=== PATIENT | male | born 1965 | race Caucasian/White ===

== ENCOUNTER 2024-04-13 13:05 | Outpatient (AMB) | payer BC, SELFPAY ==
[2024-04-13 13:29] VITALS: PULSE 88; O2SAT 96; BMI 32.7
--- NOTE | 2024-04-13 13:29 | A.OFFVIS_ITS ---
Vital Signs 04/13/24 13:29 Height 5 ft 10 in Weight 228 lb 2.855 oz BMI 32.7 Pulse 88 Pulse Source Pulse Oximeter Pulse Oximetry (%) 96 Oxygen Delivery Method Room Air Intake Visit Reasons: Cough Property Insurance Claims Examiner Required: No Allergies No Known Allergies Allergy (Verified 04/13/24 13:30) HPI Comments Details: The patient is here for pulmonary evaluation. The patient is a 58-year-old gentleman previously healthy complaining of a worsening cough. The patient states that he was in his usual state health until 11/09/2023 when he started developing a URI like symptoms with cough. The cough persisted them. Was pretty productive in nature with green sputum. Moderate severity. He was given a rescue inhaler at some point although he really did not use it. He did have a chest x-ray which was without any acute disease. Then he had a CT scan of the chest. I personally reviewed the CT scan. Does not have any parenchymal disease except some atelectasis bases. The patient does have some dilation of the bronchi in the lower lung zones left more than right suggesting some degree of chronic bronchitis with some signet ring sign. On examination the patient has had some expiratory wheezing as well. He does have a rescue inhaler that he does not like to use it. He has currently is . I will make sure that he has 1 available. His 's concern that he has a smoldering infections since he has had since he was sick in October. Not unreasonable just to treat him with doxycycline to make sure. Although I suspect that he has more of an allergic bronchitis or asthmatic bronchitis picture. Therefore, will request additional blood work including allergy testing in immune workup. In addition to that sputum culture be helpful specially if he has not responding to the doxycycline. The patient also has a pulmonary nodule on a CT scan of the chest. Small subcentimeter in size but with his underlying respiratory symptoms I would encourage him to consider repeating the CT scan a year from the last 1. Will follow-up in 3 months and discuss this further. Further recommendation based forthcoming data. [facility] Medical History (Updated 04/16/24 @ 23:10 by Ismael Alvarado MD) Pulmonary nodule Chronic cough Bronchitis Social History (Updated 04/13/24 @ 13:33 by WILLIAMS Daily) Patient Tobacco Use Status: Never used Tobacco Review of Systems Const Denies fever(s) Eyes Reports no additional complaints ENT Reports nasal congestion Card Denies chest pain Resp Reports chest congestion, Reports cough and Reports wheezing GI Reports no additional complaints Musc Reports no additional complaints Skin/Breast Denies rash Neuro Reports no additional complaints Maciel/Lymph Denies easy bleeding Aller/Immun Reports wheezing Physical Exam Vital Signs: Last Vital Signs Pulse 88 04/13/24 13:29 Pulse Ox 96 04/13/24 13:29 Oxygen Delivery Method Room Air 04/13/24 13:29 BMI result Body Mass Index 32.7 Const General: healthy appearing HEENT Head: Yes normocephalic Neck Neck: Yes supple Chest Chest palpation & inspection: normal inspection of the chest Resp Effort & Inspection: normal respiratory effort and prolonged expiratory phase Cardio Heart sounds: S1 normal heart sound present and S2 normal heart sound present GI Palpation (GI): Soft to palpation Skin General skin exam: no rashes or lesions noted Extrem General: Yes no clubbing, cyanosis or edema Results Reviewed Results Reviewed: RUN: 04/16/24 7121 PAGE 1 [facility] [address] [place] [phone] [employer]: Nabeel Barlow M.D. Specimen Inquiry Name: Juan CarlosamericaNabeel Leyla Age/Sex: 58/M : 1965 Unit#: [id number] Attend Dr: Ismael Alvarado MD Re04/13/24 Status: DEP [facility]F [facility] Disch: SPEC : [id number] ALTON: 04/13/24 STATUS: COMP REQ : [id number] RECD: 04/13/[address]: Ismael Alvarado MD COMP: 04/13/24 ENTERED: 04/13/[address]: Sole Schuster MD ORDERED: CBC Auto Diff Test Result Flag Reference WBC 8.2 4.8-10.8 X10*3/uL RBC 5.31 4.60-5.80 X10*6/uL HGB 16.3 14.0-18.0 g/dl HCT 47.3 42.0-52.0 % MCV 89.1 80.0-98.0 fL MCH 30.7 27.0-33.0 pg MCHC 34.5 31.0-36.0 g/dl RDW 13.4 11.0-16.0 % PLT 217 160-400 X10*3/uL MPV 9.4 9.4-12.4 fL Neut Pct Auto 60.5 45-73 % ImGran Pct Auto 0.5 H 0.0-0.4 % Lymp Pct Auto 23.7 20-40 % Mclennan Pct Auto 8.6 2-11 % Eos Pct Auto 5.5 H 0-4 % Baso Pct Auto 1.2 0-2 % NRBC Pct Auto 0.0 0.0-0.2 /100WBC ANC Neut Abs # 5.0 2.0-8.3 x10*3/uL ImGran Abs Auto 0.04 H 0.00-0.03 X10* 3/uL Lymph Abs Auto 2.0 1.2-4.9 X10*3/uL Mclennan Abs Auto 0.7 0.1-1.2 X10*3/uL Eos Abs Auto 0.5 H 0.0-0.4 X10*3/uL Baso Abs Auto 0.1 0.0-0.2 X10*3/uL NRBC Abs Auto 0.000 0.0-0.012 X10*3/uL END OF REPORT RUN: 04/16/24 0112 PAGE 1 [facility] [address] [place] [id number] [employer]: Nabeel Barlow M.D. Specimen Inquiry Name: Nabeel Renteria Age/Sex: 58/M : 1965 Unit#: [id number] Attend Dr: Ismael Alvarado MD Re04/13/24 Status: DEP REF Location: .LAB Disch: SPEC : [id number] ALTON: 04/13/24 STATUS: COMP REQ : [id number] RECD: 04/13/[address]: Ismael Alvarado MD COMP: 04/13/24 ENTERED: 04/13/[address]: Sole Schuster MD ORDERED: BMP Test Result Flag Reference Sodium 146 H 135-145 mmol/L Potassium 4.0 3.3-5.1 mmol/L CL 112 H 96-108 mmol/L CO2 26 22-29 mmol/L Gap 12 12-20 BUN 22 H 9-16 mg/dL Creat 1.49 H 0.5-1.4 mg/dL EGFR 48 NOTE: For -Gabonese individuals, multiply the result by 1.210. Chronic Kidney Disease: Estimated GFR < 60 mL/min/1.73m2 Severe Kidney Disease: Estimated GFR < 15 mL/min/1.73m2 Glucose, Random 82 60-115 mg/dL CA 9.6 8.4-10.2 mg/dL END OF REPORT Assessment & Plan Assessment & Plan (1) Bronchitis: Comment: smoldering infectious process versus asthmatic/eosinophilic bronchitis Code(s): J40 - Bronchitis, not specified as acute or chronic Category: Medical (2) Chronic cough: Code(s): R05.3 - Chronic cough Category: Medical (3) Pulmonary nodule: Code(s): R91.1 - Solitary pulmonary nodule Category: Medical Plan Bloodwork Sputum cx start Doxycycline start PATRICIA as needed PFTs consider repeating CT chest next year to readress pulmonary nodule Addendum: hyprenatremia and renal insufiency noted on his bloodwork. We will make sure that his primary care doctor reviews the results and compare to previous. We will also notify the patient. F/U after PFTs Orders: Orders Immunoglobulin E 04/13/24 J40 - Bronchitis, not specified as acute or chronic Hypersensitive Pneumonitis Prf 04/13/24 J40 - Bronchitis, not specified as acute or chronic, R91.8 - Other nonspecific abnormal finding of lung field Sputum Cult + Gram stain 04/13/24 J40 - Bronchitis, not specified as acute or chronic Immunoglobulins,IgG IgA IgM 04/13/24 J40 - Bronchitis, not specified as acute or chronic Resp Allergy Profile Region I 04/13/24 J40 - Bronchitis, not specified as acute or chronic, R91.1 - Solitary pulmonary nodule Complete Blood Count Auto Diff 04/13/24 J40 - Bronchitis, not specified as acute or chronic Basic Metabolic Panel 04/13/24 J40 - Bronchitis, not specified as acute or chronic PFT pulmonary function test Today J40 - Bronchitis, not specified as acute or chronic Medications: New albuterol sulfate 90 mcg/actuation 2 inhalations inhalation Q6H 30 days PRN 18 grams 12RF shortness of breath or wheezing J44.9 - Chronic obstructive pulmo nary disease, unspecified doxycycline hyclate 100 mg PO BID 14 days 28 caps 0RF Coding Level of Care Code New Pt Level 4 (28070) Diagnoses Bronchitis J40 Chronic cough R05.3 Pulmonary nodule R91.1 Time Spent (min) 38
== END 2024-04-13 13:54 | disposition home or self-care (01) ==
PROVIDERS: PCP Hospitalist; Referring Provider Hospitalist; Visit Provider Hospitalist
DX: J40 Bronchitis, not specified as acute or chronic (principal); R05.3 Chronic cough; R91.1 Solitary pulmonary nodule
CPT/HCPCS: 99204

== ENCOUNTER 2024-04-13 13:05 | Outpatient (REF) | payer BC, SELFPAY ==
[2024-04-13 14:22] LABS: MANUAL DIFF FLAG NO
[2024-04-13 15:26] LABS: Basophils Absolute Auto 0.1 X10*3/uL (0.0-0.2); Basophils Percent Auto 1.2 % (0-2); Eosinophils Absolute Auto 0.5 X10*3/uL (0.0-0.4); Eosinophils Percent Auto 5.5 % (0-4); Hematocrit 47.3 % (42.0-52.0); Hemoglobin 16.3 g/dl (14.0-18.0); Imm Gran Abs Auto 0.04 X10*3/uL (0.00-0.03); Imm Gran Pct Auto 0.5 % (0.0-0.4); Lymphocytes Percent Auto 23.7 % (20-40); Mean Corpuscular HGB Conc 34.5 g/dl (31.0-36.0); Mean Corpuscular Hemoglobin 30.7 pg (27.0-33.0); Mean Corpuscular Volume 89.1 fL (80.0-98.0); Mean Platelet Volume 9.4 fL (9.4-12.4); Monocytes Absolute Auto 0.7 X10*3/uL (0.1-1.2); Monocytes Percent Auto 8.6 % (2-11); Neutrophils Percent Auto 60.5 % (45-73); Platelet Count 217 X10*3/uL (160-400); Red Blood Count 5.31 X10*6/uL (4.60-5.80); Red Cell Distribution Width 13.4 % (11.0-16.0); White Blood Count 8.2 X10*3/uL (4.8-10.8)
[2024-04-13 15:50] LABS: Anion Gap 12 (12-20); Blood Urea Nitrogen 22 mg/dL (9-16); Calcium 9.6 mg/dL (8.4-10.2); Carbon Dioxide 26 mmol/L (22-29); Chloride 112 mmol/L (96-108); Estimated Glomerular Filt Rate 48; Glucose Random 82 mg/dL (60-115); Sodium 146 mmol/L (135-145)
[2024-04-18 13:54] LABS: Class Alternaria alternata 2; Class Aspergillus fumigatus 0; Class Bermuda Grass 2; Class Birch 2; Class Cat Dander 0; Class Cladosporium herbarum 0; Class Cockroach 0; Class Common Ragweed 0/1; Class Cottonwood 0; Class Derm. pterony 2; Class Dermatophagoides farinae 2; Class Dog Dander 0/1; Class Elm 0; Class Maple Box Elder 2; Class Mountain Cedar 0; Class Mouse Urine Protein 0; Class Mugwort 0; Class Oak 2; Class Penicillium crysogenum 0; Class Rough Pigweed 0; Class Sheep Sorrel 0; Class Sycamore 0; Class Timothy Grass 3; Class Walnut Tree 0; Class White Ash 0; Class White Mulberry 0; D001 IgE D pteronyssinus 0.79 kU/L; D002 - IgE D farinae 1.67 kU/L; E001 - IgE Cat Dander <0.10 kU/L; E005 - IgE Dog Dander 0.12 kU/L; E072-IgE Mouse Urine <0.10 kU/L; G002 IgE Bermuda Grass 1.83 kU/L; G006 - IgE Timothy Grass 3.61 kU/L; I006-IgE Cockroach, German <0.10 kU/L; Immunoglobulin E 99 kU/L (<OR=114); M001 IgE Penicillium chrysogen <0.10 kU/L; M002 - IgE Cladosporium herbar <0.10 kU/L; M003 - IgE Aspergillus fumigat <0.10 kU/L; M006 - IgE Alternaria alternat 0.99 kU/L; T001 IgE Maple/Box Elder 1.89 kU/L; T003 IgE Common Silver Birch 1.77 kU/L; T006 - IgE Cedar, Mountain <0.10 kU/L; T007 - IgE Oak, White 0.96 kU/L; T008 IgE Elm, American <0.10 kU/L; T010 - IgE Walnut <0.10 kU/L; T011 - IgE Maple Leaf Sycamore <0.10 kU/L; T014 - IgE Cottonwood <0.10 kU/L; T015 - IgE Ash, White <0.10 kU/L; T070 - IgE White Mulberry <0.10 kU/L; W001 - IgE Ragweed, Short 0.34 kU/L; W006 - IgE Mugwort <0.10 kU/L; W014 IgE Pigweed, Common <0.10 kU/L; W018 IgE Sheep Sorrel <0.10 kU/L
[2024-05-07 10:57] LABS: IgG 1596
[2024-05-07 10:59] LABS: Saccharo pora viridis Abs NEGATIVE; Thermoa vulgaris #1 NEGATIVE
[2024-05-07 11:00] LABS: Asperg fumigatus Precip Abs NEGATIVE; Micropoly faeni Abs NEGATIVE; Pigeon serum Abs NEGATIVE; Thermo candidus Abs NEGATIVE
== END 2024-04-13 13:06 | disposition home or self-care (01) ==
LOC: HO.LAB 13:05
PROVIDERS: PCP Hospitalist; Referring Provider Hospitalist; Visit Provider Hospitalist
DX: R91.8 Other nonspecific abnormal finding of lung field (principal); R05.3 Chronic cough; J40 Bronchitis, not specified as acute or chronic; R91.1 Solitary pulmonary nodule
CPT/HCPCS: 36415; 80048; 82784; 82785; 85025; 86003; 86331; 86606; 86609

== ENCOUNTER 2024-05-27 09:08 | Outpatient (REF) | payer BC, SELFPAY | END 2024-05-27 09:09 | disposition home or self-care (01) | LOC: HO.LNP 09:08 | PROVIDERS: Visit Provider Hospitalist | DX: J40 Bronchitis, not specified as acute or chronic (principal) | CPT/HCPCS: 87070; 87077; 87185; 87205 ==

== ENCOUNTER 2024-07-17 14:43 | Outpatient (REF) | payer BC, SELFPAY ==
[2024-07-17 16:14] LABS: MANUAL DIFF FLAG NO
[2024-07-17 17:23] LABS: Basophils Absolute Auto 0.1 X10*3/uL (0.0-0.2); Eosinophils Absolute Auto 0.5 X10*3/uL (0.0-0.4); Eosinophils Percent Auto 6.6 % (0-4); Hematocrit 45.7 % (42.0-52.0); Hemoglobin 15.7 g/dl (14.0-18.0); Imm Gran Abs Auto 0.07 X10*3/uL (0.00-0.03); Lymphocytes Absolute Auto 1.6 X10*3/uL (1.2-4.9); Lymphocytes Percent Auto 22.8 % (20-40); Mean Corpuscular HGB Conc 34.4 g/dl (31.0-36.0); Mean Corpuscular Hemoglobin 30.9 pg (27.0-33.0); Mean Platelet Volume 9.7 fL (9.4-12.4); Monocytes Absolute Auto 0.6 X10*3/uL (0.1-1.2); Neutrophils Absolute Auto 4.1 x10*3/uL (2.0-8.3); Neutrophils Percent Auto 59.6 % (45-73); Platelet Count 206 X10*3/uL (160-400); Red Blood Count 5.08 X10*6/uL (4.60-5.80); Red Cell Distribution Width 13.5 % (11.0-16.0); White Blood Count 6.8 X10*3/uL (4.8-10.8)
[2024-07-17 18:24] LABS: Anion Gap 12 (12-20); Blood Urea Nitrogen 23 mg/dL (9-16); Calcium 9.9 mg/dL (8.4-10.2); Carbon Dioxide 26 mmol/L (22-29); Chloride 111 mmol/L (96-108); Estimated Glomerular Filt Rate > 60; Glucose Random 85 mg/dL (60-115); Potassium 4.3 mmol/L (3.3-5.1); Sodium 145 mmol/L (135-145)
[2024-07-18 18:59] LABS: Immunoglobulin E 89 kU/L (<OR=114)
== END 2024-07-17 14:44 | disposition home or self-care (01) ==
LOC: HO.LAB 14:43
PROVIDERS: PCP Hospitalist; Visit Provider Hospitalist
DX: R91.1 Solitary pulmonary nodule (principal); R05.3 Chronic cough; J40 Bronchitis, not specified as acute or chronic
CPT/HCPCS: 36415; 80048; 82785; 85025

== ENCOUNTER 2024-07-17 14:43 | Outpatient (AMB) | payer BC, SELFPAY ==
--- NOTE | 2024-07-17 14:51 | A.OFFVIS_ITS ---
Vital Signs 07/17/24 15:11 Height 5 ft 10 in Weight 225 lb BMI 32.3 Pulse 89 Pulse Source Pulse Oximeter Pulse Oximetry (%) 95 Oxygen Delivery Method Room Air Intake Visit Reasons: Cough Certified Pest Control Technician Required: No Allergies codeine Adverse Reaction (Severe, Verified 07/17/24 15:14) Vomiting HPI Comments Details: The patient is a 58-year-old gentleman previously healthy complaining of a worsening cough. The patient states that he was in his usual state health until 11/09/2023 when he started developing a URI like symptoms with cough. The cough persisted them. Was pretty productive in nature with green sputum. Moderate severity. He was given a rescue inhaler at some point although he really did not use it. He did have a chest x-ray which was without any acute disease. Then he had a CT scan of the chest. I personally reviewed the CT scan. Does not have any parenchymal disease except some atelectasis bases. The patient does have some dilation of the bronchi in the lower lung zones left more than right suggesting some degree of chronic bronchitis with some signet ring sign. On examination the patient has had some expiratory wheezing as well. He does have a rescue inhaler that he does not like to use it. He has currently is . I will make sure that he has 1 available. His 's concern that he has a smoldering infections since he has had since he was sick in October. Not unreasonable just to treat him with doxycycline to make sure. Although I suspect that he has more of an allergic bronchitis or asthmatic bronchitis picture. Therefore, will request additional blood work including allergy testing in immune workup. In addition to that sputum culture be helpful specially if he has not responding to the doxycycline. The patient also has a pulmonary nodule on a CT scan of the chest. Small subcentimeter in size but with his underlying respiratory symptoms I would encourage him to consider repeating the CT scan a year from the last 1. Will follow-up in 3 months and discuss this further. Further recommendation based forthcoming data. 07/17/2024 the patient is here for a pulmonary follow-up visit. The patient is here with his . She complains that he is still coughing. The cough is intermittent. Sometimes his congested. Moderate severity. And sometimes he notices some wheezing. He does have a rescue inhaler but he does not use it. We did review his blood work. He does have some degree of eosinophilia. In addition to that also has a positive sputum culture with Haemophilus influenzae. He was treated effectively with doxycycline. In the time he actually was doing okay. He also completed the course of prednisone that also help. The patient also had blood work including allergy testing. He does have significant environmental allergies that are likely precipitating a lot of his symptoms. 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 In addition to that he did have the infection. the patient now has a planned vacation. Will go ahead and give him another course of doxycycline cases respiratory symptoms worsen. In the meantime he is going to start Trelegy inhaler once a day to try to help him with the eosinophilic bronchitis component. Explained to the patient that he may need to be on a maintenance inhaler view of his significant allergies. The allergies includes environmental exposures hoarseness the process trees but he is also allergic to mold. With review his CT scan of the chest that he had back in February 2024 demonstrating small pulmonary nodules. The patient will need a repeat CT scan in the spring. in addition to this the blood work also demonstrated that he had abnormal BUN and creatinine. Suggesting some degree of renal insufficiency. I did call him and notify him about the findings. Although he has not followed up with his primary care doctor as of yet. Therefore, will go ahead and request blood work for him today to make sure the renal insufficiency is not any worse and hopefully better. [facility] Medical History (Updated 07/17/24 @ 23:48 by Ismael Alvarado MD) Pulmonary nodule Chronic cough Bronchitis Social History (Updated 04/13/24 @ 13:33 by WILLIAMS Daily) Patient Tobacco Use Status: Never used Tobacco Review of Systems Const Denies fever(s) Eyes Reports no additional complaints ENT Reports nasal congestion Card Denies chest pain Resp Reports chest congestion, Reports cough and Reports wheezing GI Reports no additional complaints Musc Reports no additional complaints Skin/Breast Denies rash Neuro Reports no additional complaints Maciel/Lymph Denies easy bleeding Aller/Immun Reports wheezing Physical Exam Vital Signs: Last Vital Signs Pulse 89 07/17/24 15:11 Pulse Ox 95 07/17/24 15:11 Oxygen Delivery Method Room Air 07/17/24 15:11 BMI result Body Mass Index 32.3 Const General: healthy appearing HEENT Head: Yes normocephalic Neck Neck: Yes supple Chest Chest palpation & inspection: normal inspection of the chest Resp Effort & Inspection: normal respiratory effort Auscultation: no rhonchi, no wheezes and diminished lung sounds Cardio Heart sounds: S1 normal heart sound present and S2 normal heart sound present GI Palpation (GI): Soft to palpation Skin General skin exam: no rashes or lesions noted Extrem General: Yes no clubbing, cyanosis or edema Results Reviewed Results Reviewed: personally reviewed CT chest 02/2024 with small pulmonary nodules Assessment & Plan Assessment & Plan (1) Bronchitis: Comment: asthmatic/eosinophilic bronchitis Code(s): J40 - Bronchitis, not specified as acute or chronic Category: Medical (2) Chronic cough: Code(s): R05.3 - Chronic cough Category: Medical (3) Pulmonary nodule: Code(s): R91.1 - Solitary pulmonary nodule Category: Medical Plan start Trelegy daily *rinse* PATRICIA as needed PFTs pending CT chest 01/2025 to f/u with pulmonary nodules bloodwork today F/U 2 months Orders: Orders Basic Metabolic Panel Today J40 - Bronchitis, not specified as acute or chronic, R05.3 - Chronic cough, R91.1 - Solitary pulmonary nodule Immunoglobulin E Today J40 - Bronchitis, not specified as acute or chronic, R05.3 - Chronic cough, R91.1 - Solitary pulmonary nodule CT chest wo IV con 02/18/25 R91.1 - Solitary pulmonary nodule Complete Blood Count Auto Diff Today J40 - Bronchitis, not specified as acute or chronic, R05.3 - Chronic cough, R91.1 - Solitary pulmonary nodule Medications: New nirmatrelvir-ritonavir 300 mg (150 mg x 2)-100 mg (Paxlovid) take TWO 150 mg tablets of nirmatrelvir with ONE 100 mg tablet of ritonavir twice daily for 5 days PO 30 ea 0RF doxycycline monohydrate 100 mg PO BID 28 tabs 0RF 14 days wczmhhvztfq-fvtanplas-vdscfucq 200-62.5-25 mcg (Trelegy Ellipta) 1 inh inhalation DAILY 60 ea 12RF 30 days Coding Level of Care Code Est Pt Level 5 (42771) Diagnoses Bronchitis J40 Chronic cough R05.3 Pulmonary nodule R91.1 Time Spent (min) 45
[2024-07-17 15:11] VITALS: PULSE 89; O2SAT 95; BMI 32.3
== END 2024-07-17 15:53 | disposition home or self-care (01) ==
PROVIDERS: PCP Hospitalist; Visit Provider Hospitalist
DX: J40 Bronchitis, not specified as acute or chronic (principal); R91.1 Solitary pulmonary nodule
CPT/HCPCS: 99215

== ENCOUNTER 2024-09-04 | Outpatient (REF) | payer BC, SELFPAY ==
--- OUTSIDE RECORDS SUMMARY | 2024-11-09 11:42 | XMS_ITS ---
Author Name [facility] Organization Unknown History of Medication Use Medication Directions Dispensed Refills Start Date End Date Stat albuterol sulfateTak e 2 Puff(s) (inhalation) every 4 hours PRN for 7 [id number] aerosol inhalerevery 4 [id number] cg/actuation 01/06/2024 active allopurinoLTakeNo da te recordedNo form recordedNo frequency recordedNo route recordedNo set duration recordedNo set duration amount recordedactiveNo dosage strength recordedNo dosage strength units of measure recorded 01/06/2024 active doxycycline hyclateT suri 1 Capsule (oral) 2 times per day for 3 [id number] times per [id number] 01/06/2024 active albuterol sulfateTak e 2 Puff(s) (inhalation) every 4 hours PRN for 7 [id number] aerosol inhalerevery 4 [id number] cg/actuation 01/06/2024 active allopurinoLTakeNo da te recordedNo form recordedNo frequency recordedNo route recordedNo set duration recordedNo set duration amount recordedactiveNo dosage strength recordedNo dosage strength units of measure recorded 01/06/2024 active rosuvastatinTakeNo d ate recordedNo form recordedNo frequency recordedNo route recordedNo set duration recordedNo set duration amount recordedactiveNo dosage strength recordedNo dosage strength units of measure recorded 01/06/2024 active levothyroxineTakeNo date recordedNo form recordedNo frequency recordedNo route recordedNo set duration recordedNo set duration amount recordedactiveNo dosage strength recordedNo dosage strength units of measure recorded 01/06/2024 active amoxicillin-pot clavulanateTake 1 Tablet (oral) 2 times per day for 3 [id number] times per [id number] 01/06/2024 active Problems Problem Status Onset Date Problem Type Date of Resoluti on Source Pneumonia, unspecified organism active 2023-12-30 ProblemAct [facility] Hyperlipidemia, unspecified active ProblemAct [facility] Gout, unspecified active ProblemAct C [facility] Hyperthyroidism active ProblemAct [facility]
== END 2024-09-04 00:01 | disposition home or self-care (01) ==
LOC: CF
PROVIDERS: Visit Provider Hospitalist
DX: J44.89 Other specified chronic obstructive pulmonary disease (principal)
CPT/HCPCS: 94010; 99211

== ENCOUNTER 2024-09-04 13:03 | Outpatient (AMB) | payer BC, SELFPAY ==
--- NOTE | 2024-09-04 13:27 | MHC.OFFVIS ---
Intake Visit Reasons: [place]/Sputum Culture Allergies codeine Adverse Reaction (Severe, Verified 09/04/24 13:27) Vomiting Medication List - Last Reconciled 09/04/24 by Isa Sparks LPN albuterol sulfate 90 mcg/actuation 2 inhalations inhalation Q6H PRN 30 days allopurinol 300 mg PO DAILY atorvastatin 40 mg PO DAILY budesonide-formoterol 160-4.5 mcg/actuation 2 puffs inhalation BID 30 days doxycycline monohydrate 100 mg PO BID 14 days hzkatvnltky-llkhrtitv-ltqimffa 200-62.5-25 mcg (Trelegy Ellipta) 1 inh inhalation DAILY 30 days levothyroxine 75 mcg PO DAILY nirmatrelvir-ritonavir 300 mg (150 mg x 2)-100 mg (Paxlovid) take TWO 150 mg tablets of nirmatrelvir with ONE 100 mg tablet of ritonavir twice daily for 5 days PO PFSH Medical History (Updated 07/25/24 @ 12:27 by Ismael Alvarado MD) Pulmonary nodule Chronic cough Bronchitis Social History (Updated 04/13/24 @ 13:33 by WILLIAMS Daiyl) Patient Tobacco Use Status: Never used Tobacco Office Procedures Spirometry Testing Spirometry Comments: Spirometry done in the office, Dr. Alvarado has the results results scanned to his chart. performed by Lizbeth CORONEL [id number]- Spirometry Assessment & Plan Assessment & Plan (1) Asthma-COPD overlap syndrome: Code(s): J44.89 - Other specified chronic obstructive pulmonary disease Category: Medical Plan fernando normal sputum sent f/u 3 months Orders: Orders AMB Spirometry Testing Today J44.89 - Other specified chronic obstructive pulmonary disease Coding Level of Care Code Established Pt Est Pt Level 1 (96018) Patient Type Established Diagnoses Asthma-COPD overlap syndrome J44.89 CPT Codes Spirometry - CPT: 49336- Spirometry ([id number]) Comment NURSE VISIT ONLY
== END 2024-09-04 13:35 | disposition home or self-care (01) ==
PROVIDERS: PCP Hospitalist; Visit Provider Hospitalist
DX: J44.89 Other specified chronic obstructive pulmonary disease (principal)
CPT/HCPCS: 94010

== ENCOUNTER 2024-09-04 13:30 | Outpatient (REF) | payer BC, SELFPAY | END 2024-09-04 13:31 | disposition home or self-care (01) | LOC: HO.LNP 13:30 | PROVIDERS: Visit Provider Hospitalist | DX: R05.3 Chronic cough (principal) | CPT/HCPCS: 87070; 87077; 87185; 87205 ==